=== PATIENT | male | born 1945 | race Caucasian/White ===

== ENCOUNTER 2021-02-19 10:27 | Day surgery (SDC) | payer MEDICARE, BC ==
[2021-02-18 13:46] LABS: BASOPHILS % (AUTO) 0.8 % (0-1); EOSINOPHILS # (AUTO) 0.1 X10'3 (0-0.9); EOSINOPHILS % (AUTO) 1.5 % (0-6); LYMPHOCYTES # (AUTO) 2.2 X10'3 (1.1-4.8); LYMPHOCYTES % (AUTO) 37.4 % (21-51); MEAN CORPUSCULAR HEMOGLOBIN 30.8 PG (27.0-31.0); MEAN CORPUSCULAR HGB CONC 33.6 g/dL (33.0-36.5); MEAN CORPUSCULAR VOLUME 91.7 FL (78-98); MONOCYTES # (AUTO) 0.6 X10'3 (0-0.9); MONOCYTES % (AUTO) 10.3 % (2-12); NEUTROPHILS # (AUTO) 2.9 X10'3 (1.8-7.7); PRE OP HEMATOCRIT 40.8 % (42.0-52.0); PRE OP HEMOGLOBIN 13.7 g/dL (14.0-17.9); PRE OP PLATELET COUNT 288 X10'3 (140-440); RED BLOOD COUNT 4.45 X10'6 (4.70-6.10); RED CELL DISTRIBUTION WIDTH 13.2 % (11.5-14.5)
[2021-02-18 14:06] LABS: ALBUMIN 4.1 G/DL (3.4-5.0); ALBUMIN/GLOBULIN RATIO 1.1 (1.1-1.5); ALKALINE PHOSPHATASE 77 IU/L (46-116); BLOOD UREA NITROGEN 17 MG/DL (7-18); BUN/CREATININE RATIO 11.1 (5.4-32.0); CALCIUM 8.8 MG/DL (8.5-10.1); CHLORIDE 104 MMOL/L (99-107); CREATININE 1.53 MG/DL (0.60-1.10); PRE OP ALT 34 U/L (30-65); PRE OP ANION GAP 14 (8-16); PRE OP AST 39 U/L (10-37); PRE OP BILIRUB, TOTAL 0.4 MG/DL (0.0-1.0); PRE OP POTASSIUM 3.8 MMOL/L (3.4-5.1); PRE OP SODIUM 143 MMOL/L (135-145); TOTAL CARBON DIOXIDE 24.9 MMOL/L (24-32); TOTAL PROTEIN 7.8 G/DL (6.4-8.2); eGFR 44 ML/MIN
[2021-02-18 14:08] LABS: PRE OP GLUCOSE 201 MG/DL (70-104)
[2021-02-18 14:45] LABS: PRE OP PROTIME 10.5 SECONDS (9.0-12.0)
[~2021-02-19] VITALS: Ht 177.8 cm; Wt 87.5 kg
[2021-02-19] VITALS (12 sets, daily range): BP systolic 139–175; BP diastolic 71–93
[~2021-02-19 10:27] MED LIST: 5-HY100C PO; ALPH600C3 PO; BACI1CAP6 PO; BOSW1POW PO; CYAN50003 PO; FOLI0.4T6 PO; HYDR-3964 PO; LIDO700A47 TOP; LIDOcaine 1% W/epiNEPHrine 1:100,000 20ml vial ONE; METF-950 PO; OMEG1CAP2 PO; PRAS25CA PO; PYRI-3 PO; REPA2TAB12 PO; TADA10TA PO; TEST75GE TOP; TUMERIC; ZOLP5TAB8 PO; cocaine 4% topical solution 4ml bottle ONE; famotidine 20mg tablet PO ONE; mupirocin 2% ointment 22GM ONE; oxymetazoline 15 ML nasal spray NS ONE; oxymetazoline 15 ML nasal spray NS PRN; ringers solution, lacted 1,000 ML IV SCH
[2021-02-19] MEDS ORDERED: sevoflurane 250ml liquid IH ONE (12:51)
[2021-02-19] MEDS ORDERED: fentaNYL/PF 50MCG/1 ML 2ML syringe ONE (12:57)
[2021-02-19] MEDS ORDERED: propofol inj 20 ML IV ONE (13:18)
[2021-02-19] MEDS ORDERED: ondansetron/PF 4mg/2ml inj ONE (13:18)
[2021-02-19] MEDS ORDERED: LIDOcaine 2% (20mg/ml) 5ml vial ONE (13:18)
[2021-02-19] MEDS ORDERED: morphine 2 MG/ML inj. syringe IV PRN (13:50)
[2021-02-19] MEDS ORDERED: ondansetron/PF 4mg/2ml inj IV PRN (13:50)
[2021-02-19] MEDS ORDERED: hydrALAZINE 20mg/ml inj. IV PRN (13:50)
[2021-02-19] MEDS ORDERED: fentaNYL/PF 50MCG/1 ML 2ML syringe IV PRN ×2 (13:50)
[2021-02-19] MEDS ORDERED: labetalol 5mg/ml 20ml inj. IV PRN (13:50)
[2021-02-19] MEDS ORDERED: ringers solution, lacted 1,000 ML IV SCH (13:50)
--- NOTE | 2021-02-19 14:40 | NUR ---
PT ARRIVED TO [facility]IA [place], AWAKE, DENIES PAIN, -ANESTHESIA REPORT GIVEN, VSS-BP ELEVATED, HYDRALAZINE TO BE GIVEN-SEE MAR, PIV 20G R HAND-LR RUNNING 50ML/HR, COTTONOID TO LEFT NARE-CDI NO DRAINAGE
[2021-02-19] MEDS ORDERED: mupirocin 2% nasal ointment 1gm UD NS SCH (16:14)
[2021-02-19] MEDS ORDERED: salt irrigation nasal spray 45 ML SPRAY NS PRN (16:15)
--- NOTE | 2021-02-19 16:40 | NUR ---
PT UP TO BATHROOM-ABLE TO VOID, BP BETTER-SEE SPREADSHEET, PAIN BETTER AFTER PAIN MEDS 5/10, VSS, PIV-D/CD CANNULA INTACT, SOME BLEEDING TO LEFT NARE-MUSTACHE DRSG CHANGED, HOME CARE EXPLAINED TO PT AND PT GIVEN ALL HOME CARE SUPPLIES- ALL QUESTIONS ANSWERED. PT TAKEN TO FAMILY VEHICLE WITH ALL BELONGINGS.
== END 2021-02-19 16:40 | disposition home or self-care (01) ==
LOC: PAS 10:27
PROVIDERS: ATTEND Otolaryngology
DX: J32.8 Other chronic sinusitis (principal); J34.1 Cyst and mucocele of nose and nasal sinus; B47.9 Mycetoma, unspecified; G47.00 Insomnia, unspecified; E11.9 Type 2 diabetes mellitus without complications; Z79.899 Other long term (current) drug therapy; Z79.01 Long term (current) use of anticoagulants; Z20.822 Contact with and (suspected) exposure to COVID-19; Z98.890 Other specified postprocedural states; Z87.891 Personal history of nicotine dependence; Z85.828 Personal history of other malignant neoplasm of skin; Z88.8 Allergy status to other drugs, medicaments and biological substances; Z79.84 Long term (current) use of oral hypoglycemic drugs; Z72.89 Other problems related to lifestyle
CPT/HCPCS: 31253; 31267; 36415; 61782; 76380; 80053; 82948; 85025; 85576; 85610; 85730; 87070; 87426; 93005; A6402; C9250; J0360; J0694; J2001; J2270; J2405; J2704; J3010; J7040; J7120; A4618; A6258; A7000; J3490